=== PATIENT | male | born 1965 | race Caucasian/White ===

== ENCOUNTER 2021-01-29 07:08 | Emergency (ER) | payer SELFPAY ==
[~2021-01-29] VITALS: Ht 177.8 cm; Wt 82.0 kg
[2021-01-29 07:10] VITALS: BP 154/64
[2021-01-29] MEDS ORDERED: LIDOCAINE 5% PATCH TOP SCH (09:15)
== END 2021-01-29 12:28 | disposition home or self-care (01) ==
LOC: ER 07:08
DX: M25.511 Pain in right shoulder (principal); M54.2 Cervicalgia; W01.198A Fall on same level from slipping, tripping and stumbling with subsequent striking against other object, initial encounter; Y93.89 Activity, other specified; Y92.89 Other specified places as the place of occurrence of the external cause
CPT/HCPCS: 71045; 73030; 99284